=== PATIENT | female | born 1990 | race Caucasian/White ===

== ENCOUNTER 2025-05-19 19:04 | Emergency (ER) | payer OTHER ==
[2025-05-19 20:23] LABS: Hematocrit 44.3 % (36.0-47.0); Hemoglobin 14.5 g/dL (12.0-16.0); MDiff Complete? YES; Mean Corpuscular Hemoglobin 29.1 pg (27.0-31.0); Mean Corpuscular Volume 89.1 fl (78.0-98.0); Platelet Count 235 10x3/uL (130-400); Red Blood Cell (RBC) Count 4.97 mill/uL (4.20-5.40); White Blood Cell (WBC) Count 7.1 10x3/uL (4.8-10.8)
[2025-05-19 20:44] LABS: ALT (SGPT) 21 U/L (Less than 34); AST (SGOT) 26 U/L (11-34); Albumin 4.5 g/dL (3.1-4.5); Alkaline Phosphatase 70 U/L (40-110); Anion Gap 16 mmol/L (10-20); BUN (Urea Nitrogen) 10 mg/dL (7.0-18.7); Bilirubin, Total 0.6 mg/dL (0.3-1.2); Calc. Creatinine Clearance 0 mL/min (70-130); Calcium 9.0 mg/dL (7.8-10.44); Carbon Dioxide 22 mmol/L (22-29); Chloride 104 mmol/L (98-107); Globulin 2.9 g/dL (2.4-3.5); Glucose 86 mg/dL (70-105); Potassium 3.9 mmol/L (3.5-5.1); Sodium 138 mmol/L (136-145)
[2025-05-19 20:50] LABS: Troponin I Less than 0.010 ng/mL (< 0.028)
[2025-05-19] MEDS ORDERED: Aspirin Chewable 81 MG TAB ONE (21:28)
[2025-05-19 21:42] LABS: Troponin I 0.016 ng/mL (< 0.028)
== END 2025-05-19 22:05 | disposition home or self-care (01) ==
LOC: MADERS 19:04
DX: R07.89 Other chest pain (principal); R00.2 Palpitations; M79.621 Pain in right upper arm
CPT/HCPCS: 71045; 80053; 84484; 85025; 93005